=== PATIENT | male | born 1960 | race Caucasian/White ===

== ENCOUNTER 2016-10-27 15:38 | Emergency (ER) | payer SELFPAY ==
[2016-10-27 15:51] VITALS: BP 174/94; PULSE 76; RESP 18; TEMP 98.2; O2SAT 100
[2016-10-27] MEDS ORDERED: TDAP VACCINE 0.5 ML SUS IM ONE ×2 (16:15→16:17)
== END 2016-10-27 16:27 | disposition home or self-care (01) | DRG 605 ==
LOC: ED 15:38
DX: S80.812A Abrasion, left lower leg, initial encounter (principal); W19.XXXA Unspecified fall, initial encounter
CPT/HCPCS: 73590; 90471; 90715; 99282; A6402